=== PATIENT | male | born 1965 | race Caucasian/White ===

== ENCOUNTER 2017-04-04 19:15 | Emergency (ER) | payer MEDICARE ==
[2017-04-04] MEDS ORDERED: Diazepam 5 MG TAB ONE (20:29)
[2017-04-04] MEDS ORDERED: Proparacaine 0.5% Opth 15 ML BOT ONE (20:29)
--- NOTE | 2017-04-04 21:20 | CT ---
CT BRAIN NONCONTRAST: HISTORY: 51-year-old male status post blunt head trauma resulting in headache and blurry vision. FINDINGS: There is no midline shift or any other mass effect. There is no evidence of acute intracranial hemo rrhage, large cortical infarct, obstructive hydrocephalus, or extraaxial fluid collection. The calv arium is intact. IMPRESSION: No acute intracranial findings. edilma POS: MOISES
== END 2017-04-04 21:56 | disposition home or self-care (01) ==
LOC: ERS 19:15
DX: S00.03XA Contusion of scalp, initial encounter (principal); J20.9 Acute bronchitis, unspecified; E11.9 Type 2 diabetes mellitus without complications; E78.5 Hyperlipidemia, unspecified; I10 Essential (primary) hypertension; W22.8XXA Striking against or struck by other objects, initial encounter
CPT/HCPCS: 70450

== ENCOUNTER 2017-04-08 01:09 | Emergency (ER) | payer MEDICARE ==
[2017-04-08 02:40] LABS: #Basophils 0.1 thou/uL (0.0-0.2); #Eosinphils 0.3 thou/uL (0.0-0.7); #Lymphocytes 2.2 thou/uL (1.20-3.40); #Monocytes 0.9 thou/uL (0.11-0.59); #Neutrophils 8.2 thou/uL (1.40-6.50); %Basophils 0.7 % (0.0-1.0); %Eosinophils 2.6 % (0.0-10.0); %Lymphocytes 18.8 % (21.0-51.0); %Monocytes 8.1 % (0.0-10.0); Hematocrit 41.1 % (42.0-52.0); Mean Platelet Volume 7.2 fL (7.4-10.4); Red Blood Cell (RBC) Count 4.44 mill/uL (4.70-6.10); White Blood Cell (WBC) Count 11.7 thou/uL (4.8-10.8)
[2017-04-08 03:04] LABS: ALT (SGPT) 23 U/L (8-55); AST (SGOT) 17 U/L (5-34); Alkaline Phosphatase 61 U/L (40-150); Anion Gap 11 mmol/L (10-20); BUN (Urea Nitrogen) 20 mg/dL (8.4-25.7); Bilirubin, Total 0.4 mg/dL (0.2-1.2); Calc. Creatinine Clearance 0 mL/min (70-130); Calcium 9.5 mg/dL (7.8-10.44); Carbon Dioxide 27 mmol/L (22-29); Chloride 104 mmol/L (98-107); Estimated GFR-MDRD Greater than 90; Globulin 3.1 g/dL (2.4-3.5)
[2017-04-08 03:54] LABS: Bilirubin Negative (Negative); Blood, Urine Negative (Negative); Glucose, Urine (Dipstick) >=1000 mg/dL (Negative); Ketone, Urine Negative (Negative); Nitrite Negative (Negative); Protein, Urine (Dipstick) Negative (Neg-Trace); Urobilinogen 0.2 mg/dL (0.2-1.0)
--- NOTE | 2017-04-08 09:05 | CT ---
PRELIMINARY REPORT/[facility]/EMERGENCY AFTER HOURS PROCEDURE: EXAM: CT Abdomen and Pelvis Without Intravenous Contrast CLINICAL HISTORY: 51 years old, male; Pain; Abdominal pain; Generalized; Patient HX: R/O stone TECHNIQUE: Axial computed tomography images of the abdomen and pelvis without intravenous contrast. Coronal reformatted images were created and reviewed. COMPARISON: No relevant prior studies available. FINDINGS: The lung bases are clear. Right kidney: No intrarenal calculus or hydronephrosis. No hydroureter or visible ureteral calculus. Probable 8mm exophytic cyst extending from the anterior lower right kidney. Left kidney: No intrarenal calculus, hydronephrosis or visible mass. No hydroureter or visible ureteral calculus. The gallbladder is contracted. No visible gallstones by CT. No biliary tree dilation. There is fatty infiltration of the liver. Unremarkable appearance of the spleen, adrenal glands, and pancreas. No free air, ascites, or bowel distention. No evidence for abdominal aortic aneurysm. No retroperitoneal adenopathy. There is bilateral L5 spondylolysis, with very mild spondylolisthesis. CT pelvis: Urinary bladder unremarkable by CT. The appendix is visualized and appears normal. There are no CT findings to strongly suggest diverticulitis. No abnormal mass or fluid collection in the pelvis. IMPRESSION: No renal or ureteral calculus. No hydronephrosis or hydroureter. Normal appendix. No diverticulitis. No free air or bowel distention. Other findings discussed above. Thank you for allowing us to participate in the care of your patient. Dictated and Authenticated by: Andrew Cunningham MD 04/08/2017 3:16 AM Central Time ([place] \T\ [place]) FINAL REPORT EMERGENT AFTER HOURS NONCONTRAST CT ABDOMEN AND PELVIS: DATE: 04/08/17. HISTORY: Bilateral flank pain for 1 day. Dysuria and urinary frequency as well as urgency. COMPARISON: Noncontrasted CT scan exam on 09/18/[address] exam on 11/12/16. IMPRESSION: 1. Stable pleural-based less than 4 mm pulmonary nodule posterior left lung base. 2. Fatty infiltration of the liver. 3. No renal or ureteral calculus is seen bilaterally, and there is no hydronephrosis. 4. Stable exophytic hypodense lesion anterior aspect inferior pole right kidney statistically likel y related to a small cyst. 5. No CT evidence of appendicitis. 6. Colonic diverticulosis. 7. Bilateral pars defects at L5. 8. Findings are in agreement with the preliminary report by [facility]. POS: MED
== END 2017-04-08 04:28 | disposition home or self-care (01) ==
LOC: ERS 01:09
DX: M54.5 Low back pain (principal); E11.9 Type 2 diabetes mellitus without complications; E78.5 Hyperlipidemia, unspecified; I10 Essential (primary) hypertension; Z79.84 Long term (current) use of oral hypoglycemic drugs; Z79.899 Other long term (current) drug therapy
CPT/HCPCS: 36415; 74176; 80053; 81003; 85025; 87086; 96361; 96374; J2270

== ENCOUNTER 2017-07-15 16:02 | Emergency (ER) | payer MEDICARE ==
[2017-07-15 16:28] LABS: #Basophils 0.1 thou/uL (0.0-0.2); #Eosinphils 0.3 thou/uL (0.0-0.7); #Lymphocytes 2.5 thou/uL (1.20-3.40); #Monocytes 0.9 thou/uL (0.11-0.59); #Neutrophils 7.7 thou/uL (1.40-6.50); %Basophils 0.9 % (0.0-1.0); %Eosinophils 2.8 % (0.0-10.0); %Lymphocytes 21.5 % (21.0-51.0); %Monocytes 7.6 % (0.0-10.0); %Neutrophils 67.2 % (42.0-75.0); Hemoglobin 14.9 g/dL (14.0-18.0); Mean Corpuscular HGB CONC 33.6 g/dL (32.0-36.0); Mean Corpuscular Hemoglobin 30.6 pg (27.0-31.0); Mean Corpuscular Volume 91.1 fl (80.0-94.0); Mean Platelet Volume 7.6 fL (7.4-10.4); Platelet Count 329 thou/uL (130-400); RBC Distribution Width 13.2 % (11.5-14.5); Red Blood Cell (RBC) Count 4.87 mill/uL (4.70-6.10); White Blood Cell (WBC) Count 11.4 thou/uL (4.8-10.8)
[2017-07-15 16:50] LABS: ALT (SGPT) 21 U/L (8-55); AST (SGOT) 18 U/L (5-34); Albumin 4.3 g/dL (3.5-5.0); Alkaline Phosphatase 68 U/L (40-150); Anion Gap 18 mmol/L (10-20); BUN (Urea Nitrogen) 18 mg/dL (8.4-25.7); Bilirubin, Total 0.3 mg/dL (0.2-1.2); Calc. Creatinine Clearance 0 mL/min (70-130); Calcium 10.2 mg/dL (7.8-10.44); Carbon Dioxide 22 mmol/L (22-29); Chloride 104 mmol/L (98-107); Estimated GFR-MDRD 87; Globulin 3.3 g/dL (2.4-3.5); Glucose 89 mg/dL (70-105); Lipase 16 U/L (8-78); Potassium 4.3 mmol/L (3.5-5.1); Protein, Total 7.6 g/dL (6.0-8.3); Sodium 140 mmol/L (136-145)
[2017-07-15] MEDS ORDERED: HYDROcodone/Acetaminophen 10/325 mg Tablet ONE (17:46)
[2017-07-15 17:58] LABS: CKMB 1.6 ng/mL (0-6.6); Troponin I Less than 0.010 ng/mL (< 0.028)
--- NOTE | 2017-07-15 19:05 | RAD ---
PORTABLE CHEST 07/15/17 PROVIDED CLINICAL HISTORY: Chest pain. FINDINGS: Comparison is made with the study dated 09/24/12. The cardiac silhouette is enlarged. Left lung base is suboptimally evaluated on the basis of cardiome kate. No focal consolidation, pleural fluid or pneumothorax apparent. IMPRESSION: Cardiomegaly without evidence for an acute cardiopulmonary process. POS: RENEE
--- NOTE | 2017-07-17 15:15 | EKG ---
Test Reason : Blood Pressure : / mmHG Vent. Rate : 073 BPM Atrial Rate : 073 BPM P-R Int : 130 ms QRS Dur : 164 ms QT Int : 434 ms P-R-T Axes : 035 017 -08 degrees QTc Int : 478 ms Sinus rhythm with sinus arrhythmia with occasional Premature ventricular complexes Right bundle branch block Abnormal ECG Confirmed by SHANNON CASTELLANO, ZAC ([id number]), map editor BIPIN SALOMON ([id number]) on 07/17/2017 3:14:52 PM Referred By: Confirmed By:ZAC ORTEGA MD
== END 2017-07-15 18:23 | disposition home or self-care (01) ==
LOC: ERS 16:02
DX: R07.81 Pleurodynia (principal); E11.9 Type 2 diabetes mellitus without complications; E78.5 Hyperlipidemia, unspecified; I10 Essential (primary) hypertension
CPT/HCPCS: 36415; 71045; 80053; 82550; 82553; 83690; 84484; 85025; 85379; 93005

== ENCOUNTER 2017-08-15 23:24 | Emergency (ER) | payer MEDICARE ==
[2017-08-16 00:31] LABS: #Basophils 0.1 thou/uL (0.0-0.2); #Eosinphils 0.3 thou/uL (0.0-0.7); #Lymphocytes 2.6 thou/uL (1.20-3.40); #Monocytes 1.2 thou/uL (0.11-0.59); #Neutrophils 8.4 thou/uL (1.40-6.50); %Basophils 0.5 % (0.0-1.0); %Eosinophils 2.6 % (0.0-10.0); %Lymphocytes 20.5 % (21.0-51.0); %Monocytes 9.3 % (0.0-10.0); Hemoglobin 14.7 g/dL (14.0-18.0); Mean Corpuscular HGB CONC 33.8 g/dL (32.0-36.0); Mean Corpuscular Hemoglobin 30.7 pg (27.0-31.0); Mean Platelet Volume 7.6 fL (7.4-10.4); Platelet Count 318 thou/uL (130-400); RBC Distribution Width 13.3 % (11.5-14.5); White Blood Cell (WBC) Count 12.5 thou/uL (4.8-10.8)
[2017-08-16 00:50] LABS: ALT (SGPT) 16 U/L (8-55); AST (SGOT) 14 U/L (5-34); Albumin 4.2 g/dL (3.5-5.0); Alkaline Phosphatase 76 U/L (40-150); Anion Gap 15 mmol/L (10-20); BUN (Urea Nitrogen) 20 mg/dL (8.4-25.7); Bilirubin, Total 0.3 mg/dL (0.2-1.2); Calc. Creatinine Clearance 0 mL/min (70-130); Calcium 9.4 mg/dL (7.8-10.44); Carbon Dioxide 23 mmol/L (22-29); Chloride 103 mmol/L (98-107); Estimated GFR-MDRD 85; Globulin 3.2 g/dL (2.4-3.5); Glucose 188 mg/dL (70-105); Potassium 4.2 mmol/L (3.5-5.1); Protein, Total 7.4 g/dL (6.0-8.3); Sodium 137 mmol/L (136-145)
[2017-08-16 04:08] LABS: Bilirubin Negative (Negative); Blood, Urine Negative (Negative); Clarity CLEAR (Clear); Glucose, Urine (Dipstick) Negative (Negative); Leukocyte Negative (Negative); Nitrite Negative (Negative); Protein, Urine (Dipstick) Negative (Neg-Trace); Specific Gravity, Urine 1.014 (1.002-1.036); Urobilinogen 0.2 mg/dL (0.2-1.0)
== END 2017-08-16 05:02 | disposition home or self-care (01) ==
LOC: ERS 23:24
DX: R10.9 Unspecified abdominal pain (principal); E11.9 Type 2 diabetes mellitus without complications; E78.5 Hyperlipidemia, unspecified; I10 Essential (primary) hypertension
CPT/HCPCS: 36415; 80053; 81003; 85025; 99284

== ENCOUNTER 2018-04-21 14:14 | Emergency (ER) | payer MEDICARE ==
[2018-04-21] MEDS ORDERED: Ondansetron PF 4 MG/2 ML Vial ONE (14:58)
[2018-04-21] MEDS ORDERED: Acetaminophen 500 MG TAB ONE (14:58)
[2018-04-21 15:05] LABS: #Basophils 0.1 thou/uL (0.0-0.2); #Eosinphils 0.3 thou/uL (0.0-0.7); #Monocytes 0.9 thou/uL (0.11-0.59); #Neutrophils 11.1 thou/uL (1.40-6.50); %Basophils 0.5 % (0.0-1.0); %Eosinophils 1.9 % (0.0-10.0); %Neutrophils 77.7 % (42.0-75.0); Hemoglobin 15.1 g/dL (14.0-18.0); Mean Corpuscular HGB CONC 33.1 g/dL (32.0-36.0); Mean Corpuscular Volume 93.7 fL (78.0-98.0); Mean Platelet Volume 7.5 fL (7.4-10.4); Platelet Count 369 thou/uL (130-400); RBC Distribution Width 12.7 % (11.5-14.5); Red Blood Cell (RBC) Count 4.87 mill/uL (4.70-6.10); White Blood Cell (WBC) Count 14.3 thou/uL (4.8-10.8)
[2018-04-21 15:25] LABS: Anion Gap 12 mmol/L (10-20); BUN (Urea Nitrogen) 18 mg/dL (8.4-25.7); Calc. Creatinine Clearance 0 mL/min (70-130); Calcium 9.7 mg/dL (7.8-10.44); Carbon Dioxide 25 mmol/L (22-29); Chloride 105 mmol/L (98-107); Estimated GFR-MDRD 73; Glucose 166 mg/dL (70-105); Potassium 4.1 mmol/L (3.5-5.1); Sodium 138 mmol/L (136-145)
[2018-04-21 15:31] LABS: CKMB 1.1 ng/mL (0-6.6); Troponin I Less than 0.010 ng/mL (< 0.028)
--- NOTE | 2018-04-21 15:34 | CT ---
CT BRAIN WITHOUT CONTRAST: Date: 04/21/18 INDICATION: History of headache for 2-3 days. COMPARISON: Prior exam dated 04/04/17. FINDINGS: No acute infarct, hemorrhage, or hydrocephalus is present. Septum pellucidum and third ventricle are midline. The skull and extracranial soft tissues are unremarkable. IMPRESSION: No acute intracranial abnormality. POS: MOISES
[2018-04-21] MEDS ORDERED: Ketorolac Tromethamine 30 MG/ML VIAL ONE (16:43)
[2018-04-21] MEDS ORDERED: Metoclopramide HCl 10 MG/2 ML VIAL ONE (16:43)
[2018-04-21] MEDS ORDERED: diphenhydrAMINE 12.5 MG/5 ML UDCUP ONE (16:43)
[2018-04-21] MEDS ORDERED: diphenhydrAMINE 50 MG/ML VIAL IVP SCH (17:00)
--- NOTE | 2018-04-23 23:08 | EKG ---
Test Reason : ER INDICATION Blood Pressure : / mmHG Vent. Rate : 082 BPM Atrial Rate : 082 BPM P-R Int : 112 ms QRS Dur : 146 ms QT Int : 410 ms P-R-T Axes : 048 -11 013 degrees QTc Int : 479 ms Sinus rhythm with frequent Premature ventricular complexes Right bundle branch block Abnormal ECG Confirmed by VIKRAM KOCH ([id number]), content editor BIPIN SALOMON ([id number]) on 04/23/2018 11:07:32 PM Referred By: YOLANDA Confirmed By:VIKRAM KOCH
== END 2018-04-21 17:16 | disposition home or self-care (01) ==
LOC: ERS 14:14
DX: F43.0 Acute stress reaction (principal); I10 Essential (primary) hypertension; E11.9 Type 2 diabetes mellitus without complications; E78.5 Hyperlipidemia, unspecified; Z79.84 Long term (current) use of oral hypoglycemic drugs; Z79.899 Other long term (current) drug therapy
CPT/HCPCS: 36416; 70450; 80048; 82553; 84484; 85025; 93005; 94760; 96361; 96374; 96375; J1200; J1885; J2405; J2765

== ENCOUNTER 2018-09-26 21:36 | Emergency (ER) | payer MEDICARE ==
[2018-09-27 00:11] LABS: Bilirubin Negative (Negative); Blood, Urine Negative (Negative); Clarity CLEAR (Clear); Glucose, Urine (Dipstick) >=1000 mg/dL (Negative); Leukocyte Negative (Negative); Nitrite Negative (Negative); Protein, Urine (Dipstick) Negative (Neg-Trace); Urobilinogen 0.2 mg/dL (0.2-1.0)
[2018-09-27 18:06] LABS: Chlam.trachomatis by PCR,Urine Not Detected (NotDetected)
== END 2018-09-27 00:30 | disposition home or self-care (01) ==
LOC: ERS 21:36
DX: A60.01 Herpesviral infection of penis (principal); E11.9 Type 2 diabetes mellitus without complications; E78.5 Hyperlipidemia, unspecified; I10 Essential (primary) hypertension; Z79.84 Long term (current) use of oral hypoglycemic drugs; Z79.899 Other long term (current) drug therapy
CPT/HCPCS: 81003; 87491; 87591; 99283

== ENCOUNTER 2019-04-05 14:45 | Observation (INO) | payer MEDICARE ==
[~2019-04-05 14:45] MED LIST: Iopamidol 370 76% 100 ML VIAL ONE
[2019-04-05 15:15] LABS: #Basophils 0.1 thou/uL (0.0-0.2); #Eosinphils 0.2 thou/uL (0.0-0.7); #Lymphocytes 2.6 thou/uL (1.20-3.40); #Neutrophils 9.1 thou/uL (1.40-6.50); %Basophils 0.7 % (0.0-1.0); %Eosinophils 1.8 % (0.0-10.0); %Lymphocytes 19.9 % (21.0-51.0); %Monocytes 7.6 % (0.0-10.0); Hemoglobin 14.6 g/dL (14.0-18.0); Mean Corpuscular HGB CONC 34.8 g/dL (32.0-36.0); Mean Corpuscular Volume 92.1 fL (78.0-98.0); Mean Platelet Volume 7.4 fL (7.4-10.4); Platelet Count 316 thou/uL (130-400); RBC Distribution Width 12.1 % (11.5-14.5); Red Blood Cell (RBC) Count 4.56 mill/uL (4.70-6.10); White Blood Cell (WBC) Count 12.9 thou/uL (4.8-10.8)
[2019-04-05 15:36] LABS: ALT (SGPT) 16 U/L (8-55); AST (SGOT) 13 U/L (5-34); Albumin 4.3 g/dL (3.5-5.0); Alkaline Phosphatase 76 U/L (40-110); Anion Gap 13 mmol/L (10-20); BUN (Urea Nitrogen) 21 mg/dL (8.4-25.7); Bilirubin, Total 0.3 mg/dL (0.2-1.2); Calc. Creatinine Clearance 0 mL/min (70-130); Calcium 9.2 mg/dL (7.8-10.44); Carbon Dioxide 24 mmol/L (22-29); Chloride 104 mmol/L (98-107); Estimated GFR-MDRD 89; Globulin 2.9 g/dL (2.4-3.5); Glucose 115 mg/dL (70-105); Lipase 28 U/L (8-78); Potassium 4.1 mmol/L (3.5-5.1); Protein, Total 7.2 g/dL (6.0-8.3); Sodium 137 mmol/L (136-145)
[2019-04-05] MEDS ORDERED: Ketorolac Tromethamine 30 MG/ML VIAL ONE (16:54)
--- NOTE | 2019-04-05 17:50 | CT ---
EXAM: Abdomen and pelvic CT scan with contrast: HISTORY: Right abdominal pain COMPARISON: 04/08/2017 FINDINGS: Volume loss at the lung bases is present Liver: Hepatic steatosis Gallbladder: Unremarkable. Pancreas: Unremarkable Spleen: Unremarkable. Adrenal glands: Unremarkable. Kidneys: No renal calculus or acute obstruction. Small exophytic hypodensity anteriorly within the lower pole right kidney is too small to further characterize, although stable in size. Bowel: There is colonic diverticulosis. Bowel is incompletely evaluated without enteric contrast Urinary Bladder: The urinary bladder is unremarkable. Adenopathy: No adenopathy within the abdomen or pelvis. Free Air: No free air. Ascites: No ascites. Osseous structures: Stable appearing, without acute osseous abnormalities. IMPRESSION: No acute abnormality visualized. Additional details are described above.
[2019-04-05 18:37] LABS: Bilirubin Negative (Negative); Blood, Urine Negative (Negative); Clarity Clear (Clear); Glucose, Urine (Dipstick) Normal (Negative); Leukocyte Negative Leu/uL (Negative); Nitrite Negative (Negative); Protein, Urine (Dipstick) Negative (Neg-Trace); Urobilinogen Normal mg/dL (Less than 2)
--- NOTE | 2019-04-05 19:03 | ULT ---
Gallbladder ultrasound: Multiple grayscale images of right upper quadrant obtained according to protocol. INDICATION: Pain FINDINGS: Limited visualization due to decreased acoustic penetration of the abdomen. Liver: Increased echogenicity Gallbladder: Normal Gallbladder wall: Normal. Miranda's Sign: Negative Common bile duct is difficult to delineate due to decreased penetration. An area that may represent t he common duct is seen at approximately 9 mm/1 cm. However this is difficult to confirm as the common duct. Ascites: None IMPRESSION: No acute gallbladder pathology. Hepatic steatosis. Incomplete assessment of the common duct. The possibility of ductal dilatation at the level of common duct is not excluded. Recommend correlation biliary laboratory values to exclude signs of biliary obstructive process.
[2019-04-05] MEDS ORDERED: diphenhydrAMINE 50 MG/ML VIAL ONE (19:15)
[2019-04-05] MEDS ORDERED: Famotidine/PF 20 mg/2ml Vial ONE (19:15)
[2019-04-05] MEDS ORDERED: predniSONE 20 MG TAB ONE (19:15)
[2019-04-05] MEDS ORDERED: Sodium Chloride 0.9% 1,000 ML IV SCH (21:45)
[2019-04-05] MEDS ORDERED: diphenhydrAMINE 25 MG in Sodium Chloride 0.9% 50 ML IVPB SCH (22:00)
--- NOTE | 2019-04-05 22:39 | PDOC.EVN ---
Event Note - Event Note Event Note: [id number] HP
--- NOTE | 2019-04-05 23:27 | HP ---
CHIEF COMPLAINT: Abdominal pain. HISTORY OF PRESENT ILLNESS: Mr. Powell is a 53-year-old male with past medical history of diabetes, hyperlipidemia, hypertension, among others, presented to the emergency room with abdominal pain. Workup in the emergency room including CT of the abdomen and pelvis with IV contrast showed no acute findings. The patient was given Toradol and also was given IV contrast, 20 minutes later, the patient started having puffy eyes, swollen face and eyes. No airway compromise. No wheezing. No shortness of breath. In the ED, the patient was given Benadryl, Solu-Medrol and Pepcid. The patient is being admitted to the hospital for monitoring and further management. PAST MEDICAL HISTORY: As mentioned above in the history of present illness. PAST SURGICAL HISTORY: 1. Right knee surgery. 2. Spinal surgery. 3. Bilateral carotid surgery. FAMILY HISTORY: Reviewed and noncontributory. ALLERGIES: 1. ASPIRIN. 2. BACTRIM. 3. CIPRO. 4. SULFA. SOCIAL HISTORY: Denies alcohol use. Denies smoking, or drug abuse. HOME MEDICATIONS: Please see home medication reconciliation form for updated medications. REVIEW OF SYSTEMS: Review of 14 systems negative except what is mentioned in the history of present illness. PHYSICAL EXAMINATION: GENERAL: The patient is awake, alert, does not appear to be in acute distress, having swollen face and puffy eyes. NECK: Supple. No stridor. CHEST: Fair bilateral air entry. No wheezing. ABDOMEN: Obese, soft. Bowel sounds present. NEUROLOGIC: Awake, alert, oriented x3. PSYCHIATRIC: Normal mood. EXTREMITIES: No clubbing or cyanosis. LABORATORY DATA: CT of the abdomen and pelvis as mentioned above in the history of present illness, right upper quadrant ultrasound showed hepatic steatosis. Otherwise, no acute findings. Urinalysis is unremarkable. Electrolytes and LFTs unremarkable. CBC; WBC count is 12.9, otherwise unremarkable. ASSESSMENT: 1. Allergic reaction/anaphylaxis, the patient was given ketorolac and IV contrast, 20 minutes after that he started having a reaction. 2. Abdominal pain. Workup so far is negative. 3. Diabetes mellitus. 4. Hypertension. 5. Hyperlipidemia. PLAN: 1. Admit to [facility] for close monitoring. 2. The patient was given IV steroids, H1 and H2 blockers. 3. Reconcile home medications. 4. Deep venous thrombosis prophylaxis, early ambulation. 5. Expected length of stay at least 1 midnight if the patient is stable. Job ID: [id number]
[2019-04-05 23:53] VITALS: BMI 40.2
[2019-04-06] MEDS: methylPREDNISolone Sod Succ 40 MG VIAL IVP SCH ×5 (00:20→23:16)
[2019-04-06] MEDS: diphenhydrAMINE 25 MG in Sodium Chloride 0.9% 50 ML IVPB SCH ×4 (01:35→21:11)
--- NOTE | 2019-04-06 09:17 | PDOC.PULCN ---
Pulmonology Consult: HPI - Date of Consult Date: 04/06/19 Time: 09:00 - Consult Details Reason for Consult: Allergic reaction following toradol/IV contrast Requesting Physician: Dr. Roca - History of Present Illness HPI: KINSEY HOLDEN JR is a 53 year-old M with a pmh of HTN, HLD, DM2 who was seen in the ER yesterday for abdominal pain. He received IV Toradol and IV contrast for an abdominal CT when he began having facial, eye lid, and lip swelling. He denies SOB, wheezing, or throat swelling. He was then given Benadryl, Pepcid, and Solu-medrol. This morning he reports he is much improved with less swelling. He denies SOB, chest pain. In regards to his abdominal pain, he reports it started approximately 4 days ago. He reports associated watery, non-bloody diarrhea and nausea. He reports maintaining his po fluid intake. He reports recently eating more salads from [employer] and other food establishments. He denies any new foods, recent camping, or sick contacts. He denies recent antibiotic use. Pulmonology Consult: ROS - Review of Systems Constitutional: weakness. negative: fever, chills, sweats Cardiovascular: negative: chest pain, palpitations, edema, light headedness Respiratory: no reported symptoms. negative: short of breath, wheezing Pulmonology Consult: PMH Source: patient Past Medical History: HTN, HLD, DM2 - Family History Family history: reviewed and not pertinent - Social History Smoking Status: Former smoker Alcohol Use: other (Former) Living Situation: Pulmonology Consult: Meds - Medications MAR Reviewed: Yes Medications: Current Medications Famotidine (Pepcid) 20 mg SLOW IVP Q12HR [facility] Sodium Chloride (Normal Saline 0.9%) 1,000 mls @ 0 mls/hr IV .Q0M [facility] Diphenhydramine HCl 25 mg/ (Sodium Chloride) 50.5 mls @ 150 mls/hr IVPB 0200, 0800,1400,2000 [facility] Last Admin: 04/06/19 01:35 Dose: 50.5 mls Influenza Virus Vaccine Quadrival (Fluzone Quad Syringe) 60 mcg IM .ONCE ONE Stop: 04/06/19 21:01 Methylprednisolone Sodium Succinate (Solu-Medrol) 40 mg IVP Q6HR [facility] Last Admin: 04/06/19 06:23 Dose: 40 mg Sodium Chloride (Flush - Normal Saline) 10 ml IVF Q12HR [facility] Sodium Chloride (Flush - Normal Saline) 10 ml IVF PRN PRN PRN Reason: Saline Flush Last Admin: 04/06/19 06:24 Dose: 10 ml - Allergies Allergies/Adverse Reactions: Allergies Allergy/AdvReac Type Severity Reaction Status Date / Time aspirin Allergy Nausea Verified 11/23/16 11:35 ciprofloxacin [From Cipro] Allergy Verified 11/23/16 11:35 ketorolac [From Toradol] Allergy Verified 04/06/19 00:11 sulfamethoxazole Allergy Verified 11/23/16 11:35 [From Bactrim] trimethoprim [From Bactrim] Allergy Verified 11/23/16 11:35 Pulmonology Consult: PE - Physical Exam Constitutional: NAD (Resting comfortably in bed) HEENT: PERRLA, moist MMs, oral pharynx no lesions Deviation from normal: No obvious oral swelling, some trace facial swelling Neck: no JVD Cardiovascular: RRR, no significant murmur Respiratory: clear to auscultation anteriorly, clear to auscultation bilaterally. negative: wheezes Gastrointestinal: soft, no distention, positive bowel sounds Musculoskeletal: no edema, pulses present Neurological: non-focal, moves all 4 limbs Psychiatric: normal affect, A&O x 3 Skin: normal turgor, cap refill <2 seconds Pulmonology Consult: Results - Labs Result Diagrams: 04/05/19 15:01 04/05/19 15:01 - Radiology Interpretation US - abdomen Status: report reviewed by me Additional comments: No acute gallbladder pathology. Hepatic steatosis. Incomplete assessment of the common duct. The possibility of ductal dilatation at the level of common duct is not excluded. Recommend correlation biliary laboratory values to exclude signs of biliary obstructive process. CT scan - abdomen Status: report reviewed by me (Hepatic steatosis, no other acute intraabdominal findings) Pulmonology Consult: A/P - Problem (1) Allergic reaction caused by a drug Current Visit: Yes Code(s): T78.40XA - ALLERGY, UNSPECIFIED, INITIAL ENCOUNTER Status: Acute (2) Diabetes mellitus type 2, uncomplicated Current Visit: No Code(s): E11.9 - TYPE 2 DIABETES MELLITUS WITHOUT COMPLICATIONS Status: Chronic (3) Dyslipidemia Current Visit: No Code(s): E78.5 - HYPERLIPIDEMIA, UNSPECIFIED Status: Chronic (4) HTN (hypertension) Current Visit: No Code(s): I10 - ESSENTIAL (PRIMARY) HYPERTENSION Status: Chronic Qualifiers: Hypertension type: essential hypertension Qualified Code(s): I10 - Essential (primary) hypertension - Time Time: 50% of the time was spent in coordination of care (as documented) at patient's floor/unit and/or counseling patient. Time with Patient: greater than 70 minutes - Plan Plan: Allergic reaction to Toradol vs IV contrast -Appears resolved this morning -Continue H1/H2 blockers and steroids -Transfer out of the [facility] Abdominal pain -No obvious source on CT/US -May consider HIDA scan if concerned for gallbladder/common bile duct -Consider stool studies HTN, HLD, DM2 -Continue home meds Addendum - Attending - Attending Attestation Date/Time: 04/06/19 1100 I personally evaluated the patient and discussed the management with Dr. Mcfarland. I agree with the History, Examination, Assessment and Plan documented above with any addition or exceptions noted below. Gastroenteritis, improving. Anaphylaxis without shock. Herpes labialis. OK to transfer to the floor. Steroids for 3 days. 70 minutes have been devoted to this patient in various activities. I personally reviewed all imaging studies and laboratory data noted within this document. For fifty percent of this time, I was interacting with the patient at the bedside or coordinating care with the care team. For the remainder of the time I was immediately available to the patient in the hospital unit.
[2019-04-06] MEDS: Famotidine/PF 20 mg/2ml Vial SLOW IVP SCH ×2 (10:31→21:12)
[2019-04-06] MEDS ORDERED: Pioglitazone HCl 15 MG TAB PO SCH (11:15)
[2019-04-06] MEDS ORDERED: metFORMIN 500 MG TAB PO SCH (11:15)
[2019-04-06] MEDS ORDERED: Iopamidol 370 76% 100 ML VIAL ONE (11:31)
--- NOTE | 2019-04-06 11:44 | CT ---
CT NECK WITH AND WITHOUT CONTRAST: DATE: 04/06/2019. HISTORY: A 53-year-old male with right parotid swelling. COMPARISON: 09/24/2012. FINDINGS: The right parotid gland appears asymmetrically slightly larger than the left, and also appears slight ly larger now compared to 2013. There are a few tiny foci of low, fat attenuation within the superfi cial lobe of the right parotid gland, which is unchanged since the previous CT. There is no cystic p arotid lesion, solid enhancing neoplastic parotid tumor, ductal ectasia, or sialolith in the gland or in Rebel's duct. No fat stranding around the right parotid gland. Incidentally, there is a 3 mm calcification just to the left of midline at the far anterior edge of the oral cavity abutting the li ngual side of the mandibular symphisis, which was present on the prior CT. There is no ductal ectasi a of Joni's duct, and the left submandibular gland is normal. The previously demonstrated fluid collection in the retropharyngeal space on the 2013 CT, representin g postoperative hematoma, has resolved. There has been no other interval change. Again noted is the ACDF hardware at C5-6-7. Medialization of bilateral carotid arteries into the retropharyngeal space bilaterally. No other abnormality of retropharyngeal, parapharyngeal, submandibular, posterior cerv ical, perivertebral, parapharyngeal, or automation engineering technician spaces. No major pathology of larynx. No definit e thyroid pathology identified. There is no significant cervical lymphadenopathy. IMPRESSION: 1. Nonspecific mild enlargement of the right parotid gland, without evidence of neoplastic tumor. 2. Old anterior cervical diskectomy and fusion of the cervical spine. 3. Calcification at anterior oral cavity in location suggesting sialolith at distal edge of left sub mandibular duct, but with no associated submandibular sialoadenitis, and without change since 2013. POS: CET
--- NOTE | 2019-04-06 15:14 | PDOC.HOSPP ---
- Subjective Encounter Date: 04/06/19 Encounter Time: 15:12 Subjective: The swelling on the right side of the face imroved. - Objective Vital Signs & Weight: Vital Signs (12 hours) Temp Pulse Resp BP Pulse Ox 04/06/19 08:00 97.8 F 86 20 127/58 L 96 04/06/19 04:07 97.9 F Weight Weight 257 lb 1.614 oz Most Recent Monitor Data Heart Rate from ECG 74 NIBP 127/58 NIBP BP-Mean 81 Respiration from ECG 25 SpO2 90 I&O: 04/05/19 04/06/19 04/07/19 06:59 06:59 06:59 Intake Total 711 Balance 711 Result Diagrams: 04/05/19 15:01 04/05/19 15:01 Hospitalist ROS - Medication Medications: Active Medications Generic Name Dose Route Start Last Admin Trade Name Freq PRN Reason Stop Dose Admin Famotidine 20 mg 04/06/19 09:00 04/06/19 10:31 Pepcid SLOW IVP 20 mg Q12HR ANDERSON Administration Diphenhydramine HCl 25 mg/ 50.5 mls @ 150 mls/hr 04/06/19 02:00 04/06/19 10: 30 Sodium Chloride IVPB 50.5 mls 0200,0800,1400,2000 ANDERSON Administration Methylprednisolone Sodium Succinate 40 mg 04/05/19 23:59 04/06/19 13:17 Solu-Medrol IVP 40 mg Q6HR ANDERSON Administration Sodium Chloride 10 ml 04/06/19 09:00 04/06/19 13:15 Flush - Normal Saline IVF 10 ml Q12HR ANDERSON Administration Sodium Chloride 10 ml 04/05/19 21:42 04/06/19 06:24 Flush - Normal Saline IVF 10 ml PRN PRN Administration Saline Flush - Exam General Appearance: NAD, awake alert, ill appearing Eye: PERRL, anicteric sclera, scleral icterus Eye - other findings: right parotid gland enlarged ENT: normocephalic atraumatic, no oropharyngeal lesions, moist mucosa, dry oral mucosa Neck: supple, symmetric, no JVD, no thyromegaly, no lymphadenopathy, no carotid bruit, JVD Heart: RRR, no murmur, no gallops, no rubs, normal peripheral pulses, irregular , diminshed peripheral pulses, murmur present, II/IV, III/IV Respiratory: CTAB, no wheezes, no rales, no ronchi, normal chest expansion, no tachypnea, normal percussion, rales, rhonchi, tachypneic, wheezes Gastrointestinal: soft, non-tender, non-distended, normal bowel sounds, no palpable masses, no hepatomegaly, no splenomegaly, no bruit, no guarding, no rigidity, tender to palpation, distended, diminished bowl sounds, voluntary guarding Hosp A/P (1) Mass of right parotid gland Code(s): K11.8 - OTHER DISEASES OF SALIVARY GLANDS Status: Acute - Plan CT neck, it is unlikely an allergic reaction, it appears to be a parotid gland mass or obstruction.
[2019-04-06] MEDS: metFORMIN 500 MG TAB PO SCH (18:46)
[2019-04-06] MEDS ORDERED: FLU VACC QS2019-20(6MOS UP)/PF 60 MCG/0.5 ML SYRINGE IM ONE (21:00)
[2019-04-06] MEDS ORDERED: Non-Formulary Item 1 EACH (Metformin Hcl [Metformin Hcl] 500 MG) PO SCH (21:00)
[2019-04-07] MEDS: diphenhydrAMINE 25 MG in Sodium Chloride 0.9% 50 ML IVPB SCH (02:42)
[2019-04-07] MEDS: methylPREDNISolone Sod Succ 40 MG VIAL IVP SCH (05:41)
[2019-04-07 07:40] VITALS: BP 131/81; TEMP 97.8
[2019-04-07] MEDS ORDERED: Rosuvastatin 10 MG TAB PO SCH (09:00)
[2019-04-07] MEDS ORDERED: Famotidine 20 MG TAB PO SCH ×2 (09:00→21:00)
[2019-04-07] MEDS ORDERED: Pioglitazone HCl 15 MG TAB PO SCH (09:00)
[2019-04-07] MEDS ORDERED: Lisinopril 10 MG TAB PO SCH (09:00)
[2019-04-07] MEDS ORDERED: Tamsulosin HCl 0.4 MG CAP PO SCH (09:00)
[2019-04-07] MEDS ORDERED: valACYclovir 500 MG TAB PO SCH (09:00)
[2019-04-07] MEDS: metFORMIN 500 MG TAB PO SCH (10:04)
--- NOTE | 2019-04-07 10:54 | PRG ---
DATE OF SERVICE: 04/07/2019 SERVICE: Pulmonary Medicine. INTERVAL HISTORY: The patient is doing really well from respiratory standpoint. Breathing comfortably. No complaints of chest discomfort, fevers, chills, nausea, or vomiting. Otherwise, there has been no interval change to his condition. PHYSICAL EXAMINATION: VITAL SIGNS: Afebrile, pulse 87, blood pressure 131/81, respirations 20, and saturation 96% on room air. GENERAL: The patient is awake and alert, in no apparent distress. LUNGS: Excellent air entry with no prolonged expiratory phase or wheezing present. HEART: Normal rate and regular. ABDOMEN: Soft, nontender, and nondistended. Bowel sounds are positive. MUSCULOSKELETAL: No cyanosis or clubbing. No pitting in the bilateral lower extremities. NEUROLOGIC: Grossly nonfocal. ASSESSMENT: 1. Gastroenteritis, resolved. 2. Anaphylaxis without hypotension. 3. Herpes labialis. DISCUSSION AND PLAN: From my perspective, the patient is stable for discharge from the hospital. He can go out on a 2-day course of prednisone, which is not absolutely necessary. I have counseled him to return to the hospital immediately should he have onset of increasing wheezing or difficulty breathing. Additionally, if he has increasing abdominal discomfort or return of diarrhea, I have requested he return to clinic. He will need to complete his Valtrex at home. At this point, he has no further requirements for inpatient Pulmonary or Critical Care opinion , and I will sign off. Please call with additional questions or concerns through time. Job ID: [id number] MTDD
--- NOTE | 2019-04-08 02:42 | DIS ---
DATE OF ADMISSION: 04/05/2019 DATE OF DISCHARGE: 04/07/2019 FINAL DIAGNOSES: 1. Allergic reaction, resolved. 2. Abdominal pain, resolved. 3. Parotid gland mass, resolved. HOSPITAL COURSE: The patient has been admitted initially from the ER as the patient developed right facial swelling. It was thought that it could be anaphylactic reaction. On examination in the floor, the patient had evidence of right parotid mass. As a result, the patient underwent CT of the neck soft tissue, it showed and confirmed soft tissue mass in the parotid gland and old stone formations. By next morning, the patient's symptoms completely resolved. The patient was placed on steroids and nonsteroidal antiinflammatory as well. As the patient's condition improved, the Pulmonology team recommended to transfer the patient to outpatient care. DISCHARGE INSTRUCTIONS: Discharge the patient to outpatient care. DIET: Regular. ACTIVITY: As tolerated. DISCHARGE MEDICATIONS: As per reconciliation sheet. FOLLOWUP CARE: Follow up with PCP in 1 week. Job ID: [id number]
[2019-04-08] MEDS ORDERED: predniSONE 20 MG TAB PO SCH (08:00)
[2019-04-13] MEDS ORDERED: Semaglutide [Ozempic] 0.25 MG SC SCH (09:00)
[2019-04-13] MEDS ORDERED: Non-Formulary Item 1 EACH (Semaglutide [Ozempic] 0.25 MG) SC SCH (09:00)
== END 2019-04-07 11:20 | disposition home or self-care (01) ==
LOC: ERS 14:45 → IMCU/EMU 23:28
PROVIDERS: ADMIT Internal Medicine; ATTEND Internal Medicine
DX: T39.8X5A Adverse effect of other nonopioid analgesics and antipyretics, not elsewhere classified, initial encounter (principal); T50.8X5A Adverse effect of diagnostic agents, initial encounter; R22.0 Localized swelling, mass and lump, head; K11.8 Other diseases of salivary glands; K52.9 Noninfective gastroenteritis and colitis, unspecified; B00.1 Herpesviral vesicular dermatitis; E11.9 Type 2 diabetes mellitus without complications; E78.5 Hyperlipidemia, unspecified; I10 Essential (primary) hypertension; Z87.891 Personal history of nicotine dependence; Z79.84 Long term (current) use of oral hypoglycemic drugs; Z79.899 Other long term (current) drug therapy; Z88.1 Allergy status to other antibiotic agents; Z88.2 Allergy status to sulfonamides; Z88.8 Allergy status to other drugs, medicaments and biological substances; Z98.1 Arthrodesis status
CPT/HCPCS: 70492; 74177; 76705; 80053; 81003; 83690; 85025; 90686; 96361; 96374; 96375 ×2; 96376 ×2; 99285; G0008; G0378 ×4; 36415; 90471; J1200; J1885; J2920; J7512; S0028